=== PATIENT | male | born 1975 | race Caucasian/White ===

== ENCOUNTER 2017-09-28 22:53 | Emergency (ER) | payer OTHER ==
[2017-09-29] MEDS: ONDANSETRON 4 MG INJ IV (04:19)
[2017-09-29] MEDS: morphine 4 MG/ML VIAL IV (04:20)
== END 2017-09-29 05:40 | disposition home or self-care (01) ==
LOC: FTE 22:53 → E/R 09-29 05:40
DX: M54.5 Low back pain (principal); Z87.891 Personal history of nicotine dependence
CPT/HCPCS: 93005; 96374; 96375; 99284-25

== ENCOUNTER 2017-11-09 20:39 | Emergency (ER) | payer OTHER ==
[2017-11-09] MEDS: predniSONE 20 MG TAB PO (21:42)
== END 2017-11-09 22:00 | disposition home or self-care (01) ==
LOC: FTE 20:39
DX: M54.5 Low back pain (principal); H66.001 Acute suppurative otitis media without spontaneous rupture of ear drum, right ear
CPT/HCPCS: 99284; J7512

== ENCOUNTER 2018-04-15 23:25 | Emergency (ER) | payer OTHER ==
[2018-04-16 01:52] LABS: HEMATOCRIT 44.7 % (42.0-52.0); HEMOGLOBIN 15.3 g/dl (14.0-18.0); MEAN CORPUSCULAR HEMOGLOBIN 29.5 pg (29.0-33.0); MEAN CORPUSCULAR HGB CONC 34.2 g/dl (32.0-37.0); MEAN CORPUSCULAR VOLUME 86.3 fl (82.0-101.0); RED BLOOD COUNT 5.18 10^6/ul (4.70-6.10)
[2018-04-16 01:52] LABS: WHITE BLOOD COUNT 9.1 10^3/ul (4.8-10.8)
[2018-04-16 01:53] LABS: ADD MAN DIFF? NO; BASOPHILS % 0.2 % (0.0-2.0); EOSINOPHILS # 0.3 10^3/ul (0.0-0.5); EOSINOPHILS % 3.4 % (0.0-7.0); LYMPHOCYTES # 3.9 10^3/ul (0.8-2.9); LYMPHOCYTES % 42.3 % (15.0-51.0); MONOCYTE # 0.6 10^3/ul (0.3-0.9); MONOCYTES % 6.9 % (0.0-11.0); NEUTROPHIL # 4.3 10^3/ul (1.6-7.5); PLATELET COUNT 229 10^3/UL (140-415)
[2018-04-16 02:10] LABS: ANION GAP 13 (8-16); BLOOD UREA NITROGEN 14 mg/dl (7-20); CALCIUM 9.6 mg/dl (8.4-10.2); CARBON DIOXIDE 27 mmol/L (21-31); CHLORIDE 104 mmol/L (97-110); CREATININE 0.93 mg/dl (0.61-1.24); GLUCOSE 112 mg/dl (70-220); POTASSIUM 4.4 mmol/L (3.5-5.1); SODIUM 140 mmol/L (135-144)
[2018-04-16 02:21] LABS: TROPONIN-I < 0.012 ng/ml (0.000-0.120)
[2018-04-16] MEDS: LIDOCAINE/MYLANTA 40 ML BTL PO (02:24)
[2018-04-16] MEDS: HYDROCODONE/APAP (10/325) TAB PO (05:07)
[2018-04-16] MEDS: morphine 4 MG/ML VIAL IV (06:10)
[2018-04-16] MEDS: ONDANSETRON 4 MG INJ IV (07:57)
[2018-04-16] MEDS: HYDROmorphONE 1 MG/ML SYG IV (07:57)
[2018-04-16] MEDS: SOD CHLORIDE 0.9% 100 ML (08:32)
[2018-04-16] MEDS: IOHEXOL 100 ML (08:32)
[2018-04-16 10:04] LABS: LIPASE 24 U/L (23-300)
[2018-04-16 10:07] LABS: CREATINE KINASE 167 IU/L (23-200)
[2018-04-16 10:15] LABS: CK INDEX 0.9; CK-MB 1.47 ng/ml (0.0-2.4)
[2018-04-16 10:20] LABS: TROPONIN-I < 0.012 ng/ml (0.000-0.120)
== END 2018-04-16 11:19 | disposition home or self-care (01) ==
LOC: E/R 23:25
DX: K21.9 Gastro-esophageal reflux disease without esophagitis (principal); R40.2142 Coma scale, eyes open, spontaneous, at arrival to emergency department; R40.2252 Coma scale, best verbal response, oriented, at arrival to emergency department; R40.2362 Coma scale, best motor response, obeys commands, at arrival to emergency department; F17.210 Nicotine dependence, cigarettes, uncomplicated
CPT/HCPCS: 36415; 71045; 74177; 76705; 80048; 82550; 82553; 83690; 84484; 85025; 93005; 96374; 96375; 99285-25

== ENCOUNTER 2018-11-09 00:51 | Emergency (ER) | payer OTHER ==
[2018-11-09 03:30] LABS: ADD MAN DIFF? NO
[2018-11-09 03:32] LABS: WHITE BLOOD COUNT 13.2 10^3/ul (4.8-10.8)
[2018-11-09 03:32] LABS: ABNORMAL IP MESSAGE 1; BASOPHIL # 0.1 10^3/ul (0.0-0.1); BASOPHILS % 0.4 % (0.0-2.0); EOSINOPHILS # 0.4 10^3/ul (0.0-0.5); EOSINOPHILS % 2.9 % (0.0-7.0); HEMATOCRIT 46.9 % (42.0-52.0); HEMOGLOBIN 15.9 g/dl (14.0-18.0); LYMPHOCYTES # 5.9 10^3/ul (0.8-2.9); LYMPHOCYTES % 44.6 % (15.0-51.0); MEAN CORPUSCULAR HEMOGLOBIN 29.7 pg (29.0-33.0); MEAN CORPUSCULAR HGB CONC 33.9 g/dl (32.0-37.0); MEAN CORPUSCULAR VOLUME 87.7 fl (82.0-101.0); MEAN PLATELET VOLUME 10.2 fl (7.4-10.4); MONOCYTE # 0.8 10^3/ul (0.3-0.9); MONOCYTES % 6.3 % (0.0-11.0); NEUTROPHILS % 45.6 % (39.0-77.0); PLATELET COUNT 257 10^3/UL (140-415); POSITIVE DIFF @See below; RED BLOOD COUNT 5.35 10^6/ul (4.70-6.10); RED CELL DISTRIBUTION WIDTH 12.5 % (11.5-14.5)
[2018-11-09] MEDS ORDERED: SOD CHLORIDE 0.9% 500 ML IV (03:33)
[2018-11-09 03:50] LABS: ALANINE AMINOTRANSFERASE 33 IU/L (13-69); ALBUMIN 4.7 g/dl (3.3-4.9); ALBUMIN/GLOBULIN RATIO 1.46; ALKALINE PHOSPHATASE 123 IU/L (42-121); ANION GAP 17 (5-13); ASPARTATE AMINO TRANSFERASE 25 IU/L (15-46); BILIRUBIN,INDIRECT 0.3 mg/dl (0-1.1); BILIRUBIN,TOTAL 0.3 mg/dl (0.2-1.3); BLOOD UREA NITROGEN 17 mg/dl (7-20); CALCIUM 10.2 mg/dl (8.4-10.2); CARBON DIOXIDE 22 mmol/L (21-31); CHLORIDE 106 mmol/L (97-110); CREATININE 0.74 mg/dl (0.61-1.24); Estimated GFR > 60 mL/min (>60); GLUCOSE 96 mg/dl (70-220); LIPASE 65 U/L (23-300); POTASSIUM 4.4 mmol/L (3.5-5.1); SODIUM 145 mmol/L (135-144); TOTAL PROTEIN 7.9 g/dl (6.1-8.1)
[2018-11-09] MEDS: morphine 4 MG/ML VIAL IV (03:58)
[2018-11-09] MEDS: ONDANSETRON 4 MG INJ IV (03:58)
[2018-11-09] MEDS: SOD CHLORIDE 0.9% 1,000 ML IV (03:58)
== END 2018-11-09 05:10 | disposition home or self-care (01) ==
LOC: E/R 00:51
DX: R19.5 Other fecal abnormalities (principal); R10.9 Unspecified abdominal pain; M54.5 Low back pain; Z87.891 Personal history of nicotine dependence
CPT/HCPCS: 36415; 80053; 83690; 85025; 96374; 96375; 99284-25

== ENCOUNTER 2019-01-10 06:04 | Inpatient (IN) | payer OTHER ==
[2019-01-10] MEDS ORDERED: ADENOSINE (06:52)
[2019-01-10] MEDS: SOD CHLORIDE 0.9% 1,000 ML IV ×6 (06:52→21:35)
[2019-01-10] MEDS: ADENOSINE 6 MG INJ IV ×2 (06:59→07:02)
[2019-01-10 07:12] LABS: ADD MAN DIFF? NO
[2019-01-10 07:15] LABS: BASOPHILS % 0.2 % (0.0-2.0); EOSINOPHILS # 0.2 10^3/ul (0.0-0.5); EOSINOPHILS % 1.9 % (0.0-7.0); HEMATOCRIT 42.5 % (42.0-52.0); HEMOGLOBIN 14.8 g/dl (14.0-18.0); LYMPHOCYTES # 4.2 10^3/ul (0.8-2.9); LYMPHOCYTES % 40.9 % (15.0-51.0); MEAN CORPUSCULAR HEMOGLOBIN 30.4 pg (29.0-33.0); MEAN CORPUSCULAR HGB CONC 34.8 g/dl (32.0-37.0); MEAN CORPUSCULAR VOLUME 87.3 fl (82.0-101.0); MEAN PLATELET VOLUME 9.8 fl (7.4-10.4); MONOCYTE # 0.8 10^3/ul (0.3-0.9); MONOCYTES % 7.3 % (0.0-11.0); NEUTROPHIL # 5.1 10^3/ul (1.6-7.5); NEUTROPHILS % 49.5 % (39.0-77.0); PLATELET COUNT 216 10^3/UL (140-415); RED BLOOD COUNT 4.87 10^6/ul (4.70-6.10); RED CELL DISTRIBUTION WIDTH 12.4 % (11.5-14.5)
[2019-01-10 07:15] LABS: WHITE BLOOD COUNT 10.2 10^3/ul (4.8-10.8)
[2019-01-10] MEDS: HYDROmorphONE 1 MG/ML SYG IV ×2 (07:18→11:18)
[2019-01-10] MEDS: ONDANSETRON 4 MG INJ IV ×2 (07:18→10:39)
[2019-01-10] MEDS: MECLIZINE 12.5 MG TAB PO (07:24)
[2019-01-10 07:35] LABS: INR 0.93; PROTIME 12.6 Sec (11.9-14.9)
[2019-01-10 07:36] LABS: PARTIAL THROMBOPLASTIN TIME 27.7 Sec (23.0-35.0)
[2019-01-10 07:38] LABS: ALANINE AMINOTRANSFERASE 23 IU/L (13-69); ALBUMIN 4.1 g/dl (3.3-4.9); ALBUMIN/GLOBULIN RATIO 1.36; ALKALINE PHOSPHATASE 109 IU/L (42-121); ANION GAP 9 (5-13); ASPARTATE AMINO TRANSFERASE 20 IU/L (15-46); BILIRUBIN,INDIRECT 0.8 mg/dl (0-1.1); BILIRUBIN,TOTAL 0.8 mg/dl (0.2-1.3); BLOOD UREA NITROGEN 14 mg/dl (7-20); CALCIUM 9.4 mg/dl (8.4-10.2); CARBON DIOXIDE 26 mmol/L (21-31); CHLORIDE 107 mmol/L (97-110); CHOL/HDL RATIO 4.1 RATIO; CHOLESTEROL 153 mg/dl (100-200); CREATINE KINASE 149 IU/L (23-200); CREATININE 0.83 mg/dl (0.61-1.24); Estimated GFR > 60 mL/min (>60); GLUCOSE 89 mg/dl (70-220); HDL CHOLESTEROL 37 mg/dl (27-67); LDL CHOLESTEROL,CALCULATED 77 mg/dl; LIPASE 31 U/L (23-300); POTASSIUM 3.7 mmol/L (3.5-5.1); SODIUM 142 mmol/L (135-144); TOTAL PROTEIN 7.1 g/dl (6.1-8.1); TRIGLYCERIDES 196 mg/dl (0-149)
[2019-01-10 07:38] LABS: AMYLASE 62 U/L (11-123)
[2019-01-10 07:47] LABS: CK INDEX 0.7; CK-MB 1.08 ng/ml (0.0-2.4); TROPONIN-I < 0.012 ng/ml (0.000-0.120)
[2019-01-10 07:51] LABS: ETHANOL < 10.0 mg/dl (0-0); SALICYLATE < 1.0 mg/dl (5.0-30.0)
[2019-01-10 07:51] LABS: ACETAMINOPHEN < 10.0 ug/ml (10.0-30.0)
[2019-01-10 07:58] LABS: HEMOGLOBIN A1C 5.2 % (0-5.9)
[2019-01-10] MEDS: LORAZEPAM 2 MG INJ IV (07:59)
[2019-01-10] MEDS ORDERED: IOHEXOL 300MG/ML 150 ML BTL (08:15)
[2019-01-10] MEDS ORDERED: SOD CHLORIDE 0.9% 100 ML (08:15)
[2019-01-10] MEDS: DILTIAZEM 25 MG INJ IV (09:20)
[2019-01-10 09:49] LABS: ADD UMIC NO; UR ASCORBIC ACID NEGATIVE (NEGATIVE); UR BILIRUBIN (Dip) NEGATIVE (NEGATIVE); UR BLOOD (Dip) NEGATIVE (NEGATIVE); UR CLARITY CLEAR (CLEAR); UR COLOR STRAW (YELLOW); UR GLUCOSE (Dip) NEGATIVE (NEGATIVE); UR KETONES (Dip) NEGATIVE (NEGATIVE); UR LEUKOCYTE ESTERASE (Dip) NEGATIVE Leu/ul (NEGATIVE); UR NITRITE (Dip) NEGATIVE (NEGATIVE); UR SPECIFIC GRAVITY (Dip) 1.006 (1.003-1.030); UR TOTAL PROTEIN (Dip) NEGATIVE (NEGATIVE); UR UROBILINOGEN (Dip) NEGATIVE (NEGATIVE)
[2019-01-10 10:06] LABS: AMPHETAMINE/METHAMPHETAMINE Negative (NEGATIVE); BARBITURATES Negative (NEGATIVE); BENZODIAZEPINES Negative (NEGATIVE); CANNABINOIDS Negative (NEGATIVE); COCAINE Negative (NEGATIVE); OPIATES Positive (NEGATIVE)
[2019-01-10] MEDS ORDERED: ONDANSETRON 4 MG INJ IV ×2 (10:30→12:30)
[2019-01-10] MEDS ORDERED: ACETAMINOPHEN 325 MG TAB PO ×2 (10:30→12:30)
[2019-01-10] MEDS: ASPIRIN 325 MG TAB PO (10:38)
[2019-01-10] MEDS ORDERED: NACL 0.9% 3 ML SYG IV (12:30)
[2019-01-10] MEDS ORDERED: NITROGLYCERIN (SL) 0.4 MG TAB SL (12:30)
[2019-01-10 13:59] LABS: FREE T4 (FREE THYROXINE) 1.13 ng/dl (0.64-1.79)
[2019-01-10 14:37] LABS: CREATINE KINASE 97 IU/L (23-200)
[2019-01-10 14:49] LABS: CK INDEX 0.8; CK-MB 0.73 ng/ml (0.0-2.4); TROPONIN-I < 0.012 ng/ml (0.000-0.120)
[2019-01-10] MEDS: GABAPENTIN 400 MG CAP PO ×2 (15:17→21:16)
[2019-01-10] MEDS: OXYCODONE/ACETAMINOPHEN (5/325) TAB PO ×2 (15:39→21:25)
[2019-01-10 20:41] LABS: CREATINE KINASE 90 IU/L (23-200)
[2019-01-10 20:51] LABS: CK INDEX 0.6; CK-MB 0.57 ng/ml (0.0-2.4)
[2019-01-10 20:54] LABS: TROPONIN-I < 0.012 ng/ml (0.000-0.120)
[2019-01-10] MEDS: ATENOLOL 25 MG TAB PO (21:00)
[2019-01-10] MEDS: METHOCARBAMOL 750 MG TAB PO (21:25)
[2019-01-11 03:16] LABS: CREATINE KINASE 71 IU/L (23-200)
[2019-01-11 03:26] LABS: CK INDEX 0.7; CK-MB 0.48 ng/ml (0.0-2.4)
[2019-01-11 03:29] LABS: TROPONIN-I < 0.012 ng/ml (0.000-0.120)
[2019-01-11] MEDS: OXYCODONE/ACETAMINOPHEN (5/325) TAB PO ×4 (03:49→23:17)
[2019-01-11 07:52] LABS: ADD MAN DIFF? NO
[2019-01-11 07:55] LABS: WHITE BLOOD COUNT 7.3 10^3/ul (4.8-10.8)
[2019-01-11 07:55] LABS: BASOPHILS % 0.3 % (0.0-2.0); EOSINOPHILS # 0.2 10^3/ul (0.0-0.5); EOSINOPHILS % 2.9 % (0.0-7.0); HEMATOCRIT 37.9 % (42.0-52.0); HEMOGLOBIN 12.5 g/dl (14.0-18.0); LYMPHOCYTES # 3.1 10^3/ul (0.8-2.9); LYMPHOCYTES % 43.1 % (15.0-51.0); MEAN CORPUSCULAR VOLUME 90.9 fl (82.0-101.0); MEAN PLATELET VOLUME 10.5 fl (7.4-10.4); MONOCYTE # 0.5 10^3/ul (0.3-0.9); NEUTROPHIL # 3.4 10^3/ul (1.6-7.5); NEUTROPHILS % 46.4 % (39.0-77.0); PLATELET COUNT 156 10^3/UL (140-415); RED BLOOD COUNT 4.17 10^6/ul (4.70-6.10)
[2019-01-11 08:25] LABS: ANION GAP 4 (5-13); BLOOD UREA NITROGEN 10 mg/dl (7-20); CALCIUM 8.5 mg/dl (8.4-10.2); CARBON DIOXIDE 29 mmol/L (21-31); CHLORIDE 109 mmol/L (97-110); CREATININE 0.71 mg/dl (0.61-1.24); Estimated GFR > 60 mL/min (>60); GLUCOSE 81 mg/dl (70-220); MAGNESIUM 2.2 mg/dl (1.7-2.5); POTASSIUM 3.9 mmol/L (3.5-5.1); SODIUM 142 mmol/L (135-144)
[2019-01-11 08:25] LABS: PHOSPHORUS 3.9 mg/dl (2.5-4.9)
[2019-01-11] MEDS: ASPIRIN 81 MG TAB PO (08:40)
[2019-01-11] MEDS: ENOXAPARIN 40 MG/0.4 ML SYG SC (08:41)
[2019-01-11] MEDS: GABAPENTIN 400 MG CAP PO ×3 (08:42→20:59)
[2019-01-11] MEDS: ATENOLOL 25 MG TAB PO ×2 (08:42→20:59)
[2019-01-11] MEDS: METHOCARBAMOL 750 MG TAB PO ×2 (08:44→18:06)
[2019-01-11] MEDS: MECLIZINE 12.5 MG TAB PO (12:03)
[2019-01-11] MEDS: morphine 2 MG INJ IV (21:49)
[2019-01-12] MEDS: morphine 2 MG INJ IV ×5 (03:40→20:53)
[2019-01-12 05:03] LABS: ADD MAN DIFF? NO
[2019-01-12 05:10] LABS: WHITE BLOOD COUNT 8.6 10^3/ul (4.8-10.8)
[2019-01-12 05:10] LABS: BASOPHILS % 0.2 % (0.0-2.0); EOSINOPHILS # 0.2 10^3/ul (0.0-0.5); EOSINOPHILS % 2.7 % (0.0-7.0); HEMATOCRIT 40.2 % (42.0-52.0); HEMOGLOBIN 13.6 g/dl (14.0-18.0); LYMPHOCYTES # 4.2 10^3/ul (0.8-2.9); LYMPHOCYTES % 48.9 % (15.0-51.0); MEAN CORPUSCULAR HEMOGLOBIN 30.2 pg (29.0-33.0); MEAN CORPUSCULAR HGB CONC 33.8 g/dl (32.0-37.0); MEAN CORPUSCULAR VOLUME 89.1 fl (82.0-101.0); MEAN PLATELET VOLUME 9.8 fl (7.4-10.4); MONOCYTE # 0.5 10^3/ul (0.3-0.9); NEUTROPHIL # 3.6 10^3/ul (1.6-7.5); PLATELET COUNT 175 10^3/UL (140-415); RED BLOOD COUNT 4.51 10^6/ul (4.70-6.10); RED CELL DISTRIBUTION WIDTH 12.5 % (11.5-14.5)
[2019-01-12 05:53] LABS: ANION GAP 5 (5-13); BLOOD UREA NITROGEN 12 mg/dl (7-20); CALCIUM 8.8 mg/dl (8.4-10.2); CARBON DIOXIDE 29 mmol/L (21-31); CHLORIDE 106 mmol/L (97-110); CREATININE 0.78 mg/dl (0.61-1.24); Estimated GFR > 60 mL/min (>60); GLUCOSE 90 mg/dl (70-220); SODIUM 140 mmol/L (135-144)
[2019-01-12 05:55] LABS: MAGNESIUM 2.2 mg/dl (1.7-2.5)
[2019-01-12 05:55] LABS: PHOSPHORUS 4.4 mg/dl (2.5-4.9)
[2019-01-12] MEDS: ASPIRIN 81 MG TAB PO (08:34)
[2019-01-12] MEDS: GABAPENTIN 400 MG CAP PO ×3 (08:34→20:52)
[2019-01-12] MEDS: ENOXAPARIN 40 MG/0.4 ML SYG SC (08:35)
[2019-01-12] MEDS: ATENOLOL 25 MG TAB PO ×2 (08:35→20:53)
== END 2019-01-12 21:50 | disposition home or self-care (01) | DRG 310 ==
LOC: E/R 06:04 → 6WM 15:30
PROVIDERS: Internal Medicine
DX: I47.1 Supraventricular tachycardia (principal); I95.9 Hypotension, unspecified; G89.29 Other chronic pain; E66.9 Obesity, unspecified; Z68.37 Body mass index [BMI] 37.0-37.9, adult; Z72.0 Tobacco use; R55 Syncope and collapse; M54.9 Dorsalgia, unspecified; F32.9 Major depressive disorder, single episode, unspecified
CPT/HCPCS: 36415; 70450; 70551; 71045; 74177; 80048; 80053; 80061; 80307; 81003; 82150; 82550; 82553; 83036; 83690; 83735; 84100; 84439; 84443; 84484; 85025; 85610; 85730; 93005; 93306; 93880; 96374; 96375; 99285-25